=== PATIENT | male | born 1950 | race Caucasian/White ===

== ENCOUNTER 2020-05-11 16:09 | Emergency (ER) | payer OTHER ==
[2020-05-11] MEDS ORDERED: LIDOCAINE 1% 20 ML MDV ONE (17:00)
--- NOTE | 2020-05-11 17:02 | ER ---
Nurse's Notes [facility] Name: Sunil Jack Age: 69 yrs Sex: Male : 1950 Arrival Date: 05/11/2020 Time: 16:12 Bed 6 Private MD: Diagnosis: Cutaneous abscess of back [any part, except buttock] Presentation: 05/11 17:00 Coronavirus screen: Client denies travel out of the [place] in the last 14 days. At this ph time, the client does not indicate any symptoms associated with coronavirus-19. Ebola Screen: No symptoms or risks identified at this time. Initial Sepsis Screen: Does the patient meet any 2 criteria?. Initial Sepsis Screen: Does the patient meet any 2 criteria? No. Patient's initial sepsis screen is negative. Does the patient have a suspected source of infection? No. Patient's initial sepsis screen is negative. Risk Assessment: Do you want to hurt yourself or someone else? Patient reports no desire to harm self or others. Onset of symptoms was May 11, 2020. 17:00 Method Of Arrival: Ambulatory ph 17:00 Acuity: GABBY 4 ph 17:01 Chief complaint: Patient states: [facility]lower [facility], denies ph fever, N/V. Historical: - Allergies: 17:05 PENICILLINS; ph - PMHx: 17:05 left shoulder spurs; ph - Immunization history:: Adult Immunizations unknown. - Social history:: Smoking status: unknown. Screenin:00 Abuse screen: Denies threats or abuse. Denies injuries from another. Nutritional ph screening: No deficits noted. Tuberculosis screening: No symptoms or risk factors identified. Fall Risk None identified. Assessment: 17:14 General: Appears in no apparent distress. comfortable, slender, well groomed. Pain: ph Denies pain. Neuro: Level of Consciousness is awake, alert, obeys commands, Oriented to person, place, time, situation. Cardiovascular: Capillary refill < 3 seconds in bilateral fingers Patient's skin is warm and dry. Respiratory: Airway is patent Respiratory effort is even, unlabored. Derm: Skin is healthy with good turgor, Skin is pink, warm \T\ dry. Derm: Abscess located on lumbar area. Musculoskeletal: Circulation, motion, and sensation intact. Range of motion:. Vital Signs: 17:01 BP 125 / 72; Pulse 72; Resp 18; Pulse Ox 98% on R/A; ph ED Course: 16:12 Patient arrived in ED. ds1 16:23 Bertin Reyes PA is PHCP. [facility] 16:24 Ambrocio Riggs MD is Attending Physician. [facility] 16:35 Tash Mcdonnell, RN is Primary Nurse. ph 17:00 Patient has correct armband on for positive identification. Bed in low position. Call ph light in reach. Side rails up X 1. Pulse ox on. NIBP on. Door closed. Noise minimized. Warm blanket given. 17:01 Triage completed. ph 17:01 Fadi Hall MD is Referral Physician. [facility] 17:01 Arm band placed on Patient placed in an exam room, on a stretcher. ph 17:15 Assist provider with I \T\ D: of an abscess on Set up I\T\D tray. Performed by Bertin DUPREE Wound packed. iodoform gauze, Dressing with 4X4s, tape Patient tolerated well. Patient did not have IV access during this emergency room visit. Administered Medications: 17:00 Drug: Lidocaine (1 %) 20 ml Volume: 20 ml; Route: Infiltration; ph 17:05 Follow up: Response: No adverse reaction ph Outcome: 17:01 Discharge ordered by . [facility] 17:15 Discharged to home ambulatory. ph 17:15 Condition: good 17:15 Discharge instructions given to patient, Instructed on discharge instructions, follow up and referral plans. medication usage, wound care, Demonstrated understanding of instructions, follow-up care, medications, wound care, Prescriptions given X 1. 17:16 Patient left the ED. ph Signatures: Bertin Reyes PA PA jmm Sanford, Demi ds1 Tash Mcdonnell, RN RN ph
--- NOTE | 2020-05-11 17:02 | EDPHYS ---
Physician Documentation [facility] Name: Sunil Jack Age: 69 yrs Sex: Male : 1950 Arrival Date: 05/11/2020 Time: 16:12 Bed 6 Private MD: ED Physician Ambrocio Rgigs HPI: 05/11 16:30 This 69 yrs old Male presents to ER via Unassigned with complaints of jmm Infection on Back- [facility]. 16:30 The patient presents with an abscess of the back. Onset: The symptoms/episode jmm began/occurred gradually, 2 week(s) ago. Possible cause(s): unknown. Associated signs and symptoms: Pertinent negatives: erythema. Modifying factors: the symptoms are alleviated by nothing, the symptoms are aggravated by nothing. This is a 69 year old male with no chronic medical conditions that presents to the ED with complaints of swelling to his back which has been ongoing for the past 2 weeks worsening over the past 3 days. Denies fever. . Historical: - Allergies: 17:05 PENICILLINS; ph - PMHx: 17:05 left shoulder spurs; ph - Immunization history:: Adult Immunizations unknown. - Social history:: Smoking status: unknown. ROS: 16:30 Constitutional: Negative for fever, chills, and weight loss, Cardiovascular: Negative jmm for chest pain, palpitations, and edema, Respiratory: Negative for shortness of breath, cough, wheezing, and pleuritic chest pain. 16:30 Skin: Positive for erythema, swelling. 16:30 All other systems are negative. Exam: 16:30 Constitutional: This is a well developed, well nourished patient who is awake, alert, jmm and in no acute distress. Head/Face: atraumatic. Eyes: EOMI, no conjunctival erythema appreciated ENT: Moist Mucus Membranes Neck: Trachea midline, Supple Chest/axilla: Normal chest wall appearance and motion. Cardiovascular: Regular rate and rhythm. No edema appreciated Respiratory: Normal respirations, no respiratory distress appreciated Abdomen/GI: Non distended, soft Back: Normal ROM 16:30 Neuro: Awake and alert, normal gait Psych: Behavior is normal, Mood is normal, Patient is cooperative and pleasant 16:30 Skin: abscess, of the back, with fluctuance, with induration. Vital Signs: 17:01 BP 125 / 72; Pulse 72; Resp 18; Pulse Ox 98% on R/A; ph Procedures: 17:00 I \T\ D: Incision and drainage was performed for an abscess of the back Prepped with [facility] Betadine, Incised with #11 blade. Drained moderate amount purulent fluid. bloody fluid. Packed with iodoform gauze, Dressing: sterile 4x4 gauze, the patient tolerated the procedure well. MDM: 16:24 Patient medically screened. [facility] 16:30 Data reviewed: vital signs, nurses notes. [facility] 17:00 Counseling: I had a detailed discussion with the patient and/or guardian regarding: the [facility] historical points, exam findings, and any diagnostic results supporting the discharge/admit diagnosis, the need for outpatient follow up, to return to the emergency department if symptoms worsen or persist or if there are any questions or concerns that arise at home. ED course: Patient given wound infection return precautions. Patient understood and agrees with the plan of care. . 05/11 16:30 Order name: Incision \T\ Drainage Setup; Complete Time: 17:00 [facility] Administered Medications: 17:00 Drug: Lidocaine (1 %) 20 ml Volume: 20 ml; Route: Infiltration; ph 17:05 Follow up: Response: No adverse reaction ph Disposition: 05/12 10:51 Co-signature as Attending Physician, Ambrocio Riggs MD I agree with the assessment and [facility] plan of care. Disposition: 05/11/20 17:01 Discharged to Home. Impression: Cutaneous abscess of back [any part, except buttock]. - Condition is Stable. - Discharge Instructions: Skin Abscess, Incision and Drainage. - Prescriptions for Bactrim DS 800- 160 mg Oral Tablet - take 1 tablet by ORAL route every 12 hours for 10 days; 20 tablet. - Medication Reconciliation Form, Thank You Letter, Antibiotic Education, Prescription Opioid Use form. - Follow up: Fadi Hall MD; When: 2 - 3 days; Reason: Recheck today's complaints, Continuance of care, Re-evaluation by your physician. Signatures: Ambrocio Riggs MD MD cha Mickail, Joel, PA PA Tash Viera RN RN ph Corrections: (The following items were deleted from the chart) 05/11 17:16 17:01 05/11/2020 17:01 Discharged to Home. Impression: Cutaneous abscess of back [any ph part, except buttock]. Condition is Stable. Forms are Medication Reconciliation Form, Thank You Letter, Antibiotic Education, Prescription Opioid Use. Follow up: Fadi Hall; When: 2 - 3 days; Reason: Recheck today's complaints, Continuance of care, Re-evaluation by your physician. lou
[2020-05-11 17:21] VITALS: BP 125/72; O2SAT 98
== END 2020-05-11 17:16 | disposition home or self-care (01) ==
LOC: ER 16:09
PROC: 0J970ZZ Drainage of Back Subcutaneous Tissue and Fascia, Open Approach (ICD-10-PCS; principal; 2020-05-11)
DX: L02.212 Cutaneous abscess of back [any part, except buttock and flank] (principal); Z88.0 Allergy status to penicillin
CPT/HCPCS: 99283